=== PATIENT | female | born 1965 | race African-American/Black ===

== ENCOUNTER 2017-10-17 20:49 | Emergency (ER) | payer OTHER ==
[~2017-10-17] VITALS: Ht 157.5 cm; Wt 73.9 kg
[~2017-10-17 20:49] MED LIST: ATIVAN1 MG ORAL; ATORVASTATIN CA10 MG ORAL; AZITHROMYCIN250 MG PO; CIPROFLOXACIN500 M2 ORAL; CYCLOBENZAPRINE10 MG ORAL; DIFLUCAN150 MG PO; IBUPROFEN600 MG ORAL; METROGEL-VAGINA70 G1 VAGIN; NORCO 5-325 TA1 EACH ORAL; OCUFLOX5 ML RIGHT EYE; PHENERGAN/CODE120 ML PO
[2017-10-17 20:55] VITALS: BP 115/69
[2017-10-17] MEDS ORDERED: HYDROCODON-ACE1 EA15 ORAL (21:29)
[2017-10-17] MEDS ORDERED: IBUPROFEN600 MG ORAL (21:29)
--- NOTE | 2017-10-17 21:29 | Emergency Room Report ---
History of Present Illness General Chief Complaint: Lower Back Pain or Injury Source: Patient Present Illness HPI This is a 52-year-old female with a history of herniated disc in the lumbar spine. She was doing well until yesterday when is acting up. Pain to the lower back radiating down her left buttock. Pain is 9/10. Worse with certain motion and certain position. No anesthesia. No incontinence of bowel or urine. Similar symptom to previous. She had MRI done already. Allergies: Coded Allergies: No Known Allergies (Verified , 10/26/16) Patient History Past Medical History: see triage record, old chart reviewed Past Surgical History: none Pertinent Family History: none Social History: Denies: smoking Last Menstrual Period: none Now: No Immunizations: other Reviewed Nursing Documentation: PMH: Agreed, PSxH: Agreed Nursing Documentation-PMH Hx Cardiac Problems: Yes - high cholesterol Hx Asthma: Yes - partial hysterectomy 1989 Hx Diabetes: Yes - "borderline" Review of Systems Eye: Denies: eye pain, blurred vision ENT: Denies: ear pain, nose congestion, throat swelling Respiratory: Denies: cough, shortness of breath Cardiovascular: Denies: chest pain, palpitations Gastrointestinal: Denies: abdominal pain, diarrhea, nausea, vomiting Musculoskeletal: Reports: back pain, Denies: joint pain Skin: Denies: rash Neurological: Denies: headache, numbness Endocrine: Denies: increased thirst, increased urine Hematologic/Lymphatic: Denies: easy bruising All Other Systems: negative except mentioned in HPI Physical Exam Vital Signs Date Time Temp Pulse Resp B/P (MAP) Pulse Ox O2 Delivery O2 Flow Rate FiO2 10/17/17 20:55 97.9 70 18 115/69 98 vitals alexia Sp02 EP Interpretation: reviewed, normal General Appearance: well appearing, no apparent distress, alert Head: normocephalic, atraumatic Eyes: bilateral eye PERRL, bilateral eye EOMI ENT: hearing grossly normal, normal pharynx Neck: full range of motion, supple, no meningismus Respiratory: chest non-tender, lungs clear, normal breath sounds Cardiovascular #1: regular rate, rhythm, no murmur Gastrointestinal: normal bowel sounds, non tender, no mass, no organomegaly, no bruit, non-distended Musculoskeletal: back normal - No deformit lower lumbararea on the left., gait/ station normal, normal range of motion Psychiatric: mood/affect normal Skin: warm/dry Medical Decision Making Diagnostic Impression: Primary Impression: Low back pain Qualified Codes: M54.42 - Lumbago with sciatica, left side ER Course Patient was exacerbation of chronic lower back pain. No red flags indicate cauda equina syndrome, spinal epidural abscess or neoplastic process. We'll discharge home. Last Vital Signs Date Time Temp Pulse Resp B/P (MAP) Pulse Ox O2 Delivery O2 Flow Rate FiO2 10/17/17 20:55 97.9 70 18 115/69 98 Status: improved Disposition: HOME, SELF-CARE Condition: Stable Scripts Ibuprofen* (MOTRIN*) 600 Mg Tablet 600 MG ORAL THREE TIMES A DAY, #30 TAB 0 Refills Prov: ANTONI SANCHEZ M.D. 10/17/17 Hydrocodone/Acetaminophen 5-325* (HYDROCODONE/ACETAMINOPHEN 5-325*) 1 Each Tablet 1 TAB ORAL Q6H Y for For Pain, #30 TAB 0 Refills Prov: ANTONI SANCHEZ M.D. 10/17/17 Patient Instructions: Back Pain, Adult Additional Instructions: Followup with your DrAlisa in 7 days. Return if symptom worsen. ANTONI SANCHEZ M.D. Oct 17, 2017 21:29
[2017-10-17] MEDS ORDERED: HYDROmorphone 1mg/ml Carpuject IM ONE (21:30)
[2017-10-17 21:38] VITALS: BP 115/69
== END 2017-10-17 21:38 | disposition home or self-care (01) ==
LOC: EMR 21:25
DX: M54.42 Lumbago with sciatica, left side (principal); G89.29 Other chronic pain
CPT/HCPCS: 99283; J1170

== ENCOUNTER 2017-11-27 11:28 | Emergency (ER) | payer BC, OTHER ==
[~2017-11-27] VITALS: Ht 154.9 cm; Wt 72.6 kg
[~2017-11-27 11:28] MED LIST changes: +HYDROCODON-ACE1 EA15 ORAL
[2017-11-27 11:32] VITALS: BP 104/62
--- NOTE | 2017-11-27 12:22 | Emergency Room Report ---
History of Present Illness General Chief Complaint: Pain Source: Patient, Medical Record Present Illness HPI 52-year-old female presents ER complaining of left wrist and left ankle pain. Patient reports a shopping cart ran over ankle a "few days ago" and and she jammed her wrist on the cart when this occured. Patient complains of pain with walking; states her ankle "swells up" when she puts weight on it. Patient reports she has been resting and icing the ankle with mild relief of symptoms. 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 Patient denies use of medication for pain. Patient reports history of surgery on left ankle "years ago". Patient denies hitting head, LOC, dizziness, syncope. Patient denies fever, nausea, vomiting, numbness or tingling in extremities. Allergies: Coded Allergies: No Known Allergies (Verified , 10/26/16) Patient History Past Medical History: see triage record Pertinent Family History: none Reviewed Nursing Documentation: PMH: Agreed, PSxH: Agreed Nursing Documentation-PM Past Medical History: No History, Except For Hx Cardiac Problems: Yes - high cholesterol Hx Asthma: Yes - partial hysterectomy 1989 Hx Diabetes: Yes - "borderline" Review of Systems All Other Systems: negative except mentioned in HPI Physical Exam Vital Signs Date Time Temp Pulse Resp B/P (MAP) Pulse Ox O2 Delivery O2 Flow Rate FiO2 11/27/17 11:32 97.3 98 18 104/62 99 Room Air Sp02 EP Interpretation: reviewed, normal General Appearance: no apparent distress, alert, GCS 15, non-toxic Head: normocephalic, atraumatic Eyes: bilateral eye normal inspection, bilateral eye PERRL Neck: full range of motion Respiratory: chest non-tender, lungs clear, normal breath sounds, no respiratory distress, speaking full sentences Cardiovascular #1: regular rate, rhythm, no edema Cardiovascular #2: 2+ radial (R), 2+ radial (L), 2+ dorsalis pedis (R), 2+ dorsalis pedis (L) Musculoskeletal: back normal, digits/nails normal, gait/station normal, normal range of motion - left wrist, non-tender, no calf tenderness, decreased range of motion - left ankle: secondary to pain, other - NVI Neurologic: alert, oriented x3, responsive, sensory intact, abnormal gait - secondary to pain Psychiatric: mood/affect normal Skin: normal color, no rash, warm/dry, well hydrated, other - hyperpigmented scar along lateral aspect of left lower leg extending to ankle Medical Decision Making PA Attestation Dr. Kaur is my supervising Physician whom patient management has been discussed with. Diagnostic Impression: Primary Impression: Left ankle pain Additional Impression: Left wrist pain ER Course Pt. presents to the ED c/o left ankle and wrist pain. Ddx considered but are not limited to fracture, sprain, strain, contusion, cellulitis. Upon physical exam, patients left wrist has full ROM, non TTP, and is NVI intact. X-rays not indicated at this time. Recommend Motrin for pain. Vital signs: are WNL, pt. is afebrile ORDERS: An X-ray of the left ankle was ordered, results show no acute fracture, per discussion with the radiologist. ED INTERVENTIONS: Ibuprofen KELLY Wrap was applied. The affected ankle was checked afterwards by me showing good alignment and support with distal neurovascular functioning intact. Crutches provided DISCHARGE: -Rx provided for Ibuprofen for pain symptoms. At this time pt. is stable for d/c to home. Will provide printed patient care instructions, and any necessary prescriptions. Patient instructed to follow with primary care provider in 3 - 5 days and to request further orthopedic follow-up. Care plan and follow up instructions have been discussed with the patient prior to discharge. Patient instructed on RICE method: rest, ice, compression, elevation. Patient instructed to WBAT. Take medications as directed. Patient questions asked and answered. ER precautions given, patient instructed to return to ER immediately for any new or worsening of symptoms. Other X-Ray Diagnostic Results Other X-Ray Diagnostic Results : # of Views/Limited Vs Complete: 3 View Indication: Pain EP Interpretation: Yes PA Xray: Interpretation reviewed, by supervising MD, and agrees with findings. Interpretation: no dislocation, no soft tissue swelling, no fractures, other - Previous surgical repair of fibula Impression: No acute disease IAN Scribe Text Mejia Preciado PA-C Last Vital Signs Date Time Temp Pulse Resp B/P (MAP) Pulse Ox O2 Delivery O2 Flow Rate FiO2 11/27/17 11:32 97.3 98 18 104/62 99 Room Air Disposition: HOME, SELF-CARE Condition: Stable Scripts Ibuprofen* (MOTRIN*) 600 Mg Tablet 600 MG ORAL Q8H Y for For Pain, #30 TAB 0 Refills Prov: Lionel Preciado 11/27/17 Patient Instructions: Ankle Sprain, [id number] Additional Instructions: Followup with primary care provider in 3 -5 days to discuss further treatment and ortho referral. Recommend RICE method: rest, ice, compression, elevation. Take medications as directed. Patient questions asked and answered. ER precautions given, patient instructed to return to ER immediately for any new or worsening of symptoms. Lionel Preciado Nov 27, 2017 12:22
[2017-11-27] MEDS ORDERED: IBUPROFEN600 MG ORAL (14:10)
--- NOTE | 2017-11-27 14:16 | Diagnostic Imaging Report ---
Indication: Ankle pain Technique: 3 views of the left ankle Comparison: none Findings: Lateral sideplate and screws seen reducing old healed distal fibular fracture. 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 No acute fractures. No dislocations. The joint spaces are preserved. Numerous ossific densities surrounding the ankle joint, most likely represent accessory ossicles but one or more intra-articular loose bodies not completely excludable. There is a small plantar spur Impression: No acute bony trauma Postsurgical changes, as described Degenerative changes, as described
[2017-11-27 15:02] VITALS: BP 110/64
== END 2017-11-27 14:45 | disposition home or self-care (01) ==
LOC: EMR 12:09
DX: M79.672 Pain in left foot (principal); M25.532 Pain in left wrist; J45.909 Unspecified asthma, uncomplicated; Z98.890 Other specified postprocedural states
CPT/HCPCS: 99283

== ENCOUNTER 2018-01-15 01:59 | Emergency (ER) | payer BC ==
[~2018-01-15] VITALS: Ht 154.9 cm; Wt 72.6 kg
[2018-01-15 02:15] VITALS: BP 122/79
--- NOTE | 2018-01-15 02:18 | Emergency Room Report ---
History of Present Illness General Chief Complaint: Female Urogenital Problems Source: Patient Present Illness HPI Is a 52-year-old female with no sign of an past medical history. She presents with chief complaint of dysuria and frequency. Onset for about 2 weeks now. This occurred after she got back from a cruise with a new boyfriend. She finished a course of Macrobid and improved but now came back 2 days later. No nausea no vomiting. No discharge. Does have an older. Denies any other complaint. Allergies: Coded Allergies: No Known Allergies (Verified , 10/26/16) Patient History Past Medical History: see triage record, old chart reviewed Past Surgical History: other Pertinent Family History: none Social History: Denies: smoking Now: No Immunizations: other Reviewed Nursing Documentation: PMH: Agreed, PSxH: Agreed Nursing Documentation-PMH Hx Cardiac Problems: Yes - high cholesterol Hx Asthma: Yes - partial hysterectomy 1989 Hx Diabetes: Yes - "borderline" Review of Systems Eye: Denies: eye pain, blurred vision ENT: Denies: ear pain, nose congestion, throat swelling Respiratory: Denies: cough, shortness of breath Cardiovascular: Denies: chest pain, palpitations Gastrointestinal: Denies: abdominal pain, diarrhea, nausea, vomiting Genitourinary: Reports: dysuria Musculoskeletal: Denies: back pain, joint pain Skin: Denies: rash Neurological: Denies: headache, numbness Endocrine: Denies: increased thirst, increased urine Hematologic/Lymphatic: Denies: easy bruising All Other Systems: negative except mentioned in HPI Physical Exam Vital Signs Date Time Temp Pulse Resp B/P (MAP) Pulse Ox O2 Delivery O2 Flow Rate FiO2 01/15/18 02:02 97.8 86 16 119/79 99 Room Air 97.9 vitals normal Sp02 EP Interpretation: reviewed, normal General Appearance: well appearing, no apparent distress, alert Head: normocephalic, atraumatic Eyes: bilateral eye PERRL, bilateral eye EOMI ENT: hearing grossly normal, normal pharynx Neck: full range of motion, supple, no meningismus Respiratory: chest non-tender, lungs clear, normal breath sounds Cardiovascular #1: regular rate, rhythm, no murmur Gastrointestinal: normal bowel sounds, non tender, no mass, no organomegaly, no bruit, non-distended Genitourinary: other - Pelvic exam done with Milli female nurse, as pipeman. External exam normal. Internal exam showed whitish discharge. No cervical motion tenderness. No adnexal tenderness. Musculoskeletal: back normal, gait/station normal, normal range of motion Psychiatric: mood/affect normal Skin: warm/dry Medical Decision Making Diagnostic Impression: Primary Impression: Vaginitis Qualified Codes: N76.0 - Acute vaginitis ER Course Patient presents with a vaginitis. On exam it looked like bacterial vaginosis. We'll discharge home. Recommend outpatient Pap smear. Patient said she scheduled for one coming up. Last Vital Signs Date Time Temp Pulse Resp B/P (MAP) Pulse Ox O2 Delivery O2 Flow Rate FiO2 01/15/18 02:02 97.8 86 16 119/79 99 Room Air 97.9 Status: unchanged Disposition: HOME, SELF-CARE Condition: Stable Scripts Metronidazole* (FLAGYL*) 500 Mg Tablet 500 MG ORAL BID, #14 TAB Prov: ANTONI SANCHEZ M.D. 01/15/18 Patient Instructions: Vaginitis Additional Instructions: Follow-up with your doctor in 5-7 days. Recommend outpatient Pap smear. Return if symptom worsen. ANTONI SANCHEZ M.D. Jan 15, 2018 02:18
[2018-01-15 02:24] LABS: APPEARANCE,URINE CLEAR; BILIRUBIN, URINE NEGATIVE (NEGATIVE); COLOR,URINE PALE YELLOW; GLUCOSE, URINE (UA) NEGATIVE (NEGATIVE); KETONES,URINE NEGATIVE (NEGATIVE); LEUKOCYTE ESTERASE ,URINE 1+ (NEGATIVE); NITRITE,URINE NEGATIVE (NEGATIVE); PH,URINE 6 (4.5-8.0); PROTEIN,URINE NEGATIVE (NEGATIVE); UROBILINOGEN,URINE NORMAL MG/DL (0.0-1.0)
[2018-01-15] MEDS ORDERED: METRONIDAZOLE500 MG ORAL (02:43)
[2018-01-15 02:51] VITALS: BP 122/79
== END 2018-01-15 02:51 | disposition home or self-care (01) ==
LOC: EMR 02:18
DX: N76.0 Acute vaginitis (principal); E78.00 Pure hypercholesterolemia, unspecified; R73.03 Prediabetes
CPT/HCPCS: 81003; 87210; 99283

== ENCOUNTER 2018-09-11 18:02 | Emergency (ER) | payer BC ==
[~2018-09-11] VITALS: Ht 156.2 cm; Wt 71.7 kg
[~2018-09-11 18:02] MED LIST changes: +METRONIDAZOLE500 MG ORAL
[2018-09-11 18:10] VITALS: BP 121/77
[2018-09-11 18:41] LABS: APPEARANCE,URINE CLEAR; BILIRUBIN, URINE NEGATIVE (NEGATIVE); COLOR,URINE PALE YELLOW; GLUCOSE, URINE (UA) NEGATIVE (NEGATIVE); KETONES,URINE NEGATIVE (NEGATIVE); LEUKOCYTE ESTERASE ,URINE NEGATIVE (NEGATIVE); NITRITE,URINE NEGATIVE (NEGATIVE); PH,URINE 5 (4.5-8.0); PROTEIN,URINE NEGATIVE (NEGATIVE); UROBILINOGEN,URINE NORMAL MG/DL (0.0-1.0)
--- NOTE | 2018-09-11 18:43 | Emergency Room Report ---
History of Present Illness General Chief Complaint: Back Pain-No Injury Source: Patient, Medical Record Present Illness HPI 53-year-old female patient presents ER complaining of pain with urinating for the past few days and bilateral flank pain for the past day. REports flank pain worse on right side compared to left side. Reports burning with urination, frequency, urgency for the past 2 weeks. States that she called her doctor 2 weeks ago and he prescribed her Cipro, states that she completed the course, states the symptoms resolved for 4 days before returning a few days ago. Denies vaginal discharge. Denies hematuria. Denies foul smelling odor. Denies recent injury or trauma. denies bowel or bladder incontinence. Reports takes [place] for pain, last taken 4 hours ago prior to arrival at the ER. Reports pain worse with movement. Denies fever, chest pain, SOB, abdominal pain. Denies radiation of pain symptoms. Allergies: Coded Allergies: No Known Allergies (Verified , 10/26/16) Patient History Past Medical History: see triage record Last Menstrual Period: 1998 Reviewed Nursing Documentation: PMH: Agreed; PSxH: Agreed Nursing Documentation-PMH Past Medical History: No History, Except For Hx Cardiac Problems: Yes - high cholesterol Hx Asthma: Yes - partial hysterectomy 1989 Hx Diabetes: Yes - "borderline" Review of Systems All Other Systems: negative except mentioned in HPI Physical Exam Vital Signs Date Time Temp Pulse Resp B/P (MAP) Pulse Ox O2 Delivery O2 Flow Rate FiO2 09/11/18 18:07 97.5 82 18 121/77 98 Room Air Sp02 EP Interpretation: reviewed, normal General Appearance: well appearing, no apparent distress, alert, GCS 15, non- toxic Head: normocephalic, atraumatic Eyes: bilateral eye normal inspection, bilateral eye PERRL ENT: hearing grossly normal, normal pharynx, no angioedema, normal voice, uvula midline, moist mucus membranes Neck: full range of motion Respiratory: lungs clear, normal breath sounds, no rhonchi, no respiratory distress, no accessory muscle use, no wheezing, speaking full sentences Cardiovascular #1: regular rate, rhythm, no edema Cardiovascular #2: 2+ radial (R), 2+ radial (L) Gastrointestinal: non tender, soft, no mass, non-distended, no guarding, no pulsatile mass, no rebound Genitourinary: CVA tenderness (R) Musculoskeletal: back normal, digits/nails normal, gait/station normal, normal range of motion, non-tender Neurologic: alert, oriented x3, responsive, motor strength/tone normal, SLR negative, sensory intact, cerebellar normal, normal gait, speech normal Psychiatric: mood/affect normal Skin: no rash Lymphatic: no adenopathy Medical Decision Making PA Attestation Dr. Kaur is my supervising Physician whom patient management has been discussed with. Diagnostic Impression: Primary Impression: Dysuria Additional Impressions: Flank pain Hiatal hernia ER Course Pt presents to ED c/o dysuria and bilateral flank pain. DDX considered but are not limited to cystitis, pyelonephritis, STI, vaginitis, , hydronephrosis, sprain, strain, kidney stones, muscle spasm. No abdominal tenderness to palpation, negative electro winning operator, negative Mixon, negative Rovsing, low suspicion for cholecystitis or appendicitis, does not require imaging or labs at this time. VITAL SIGNS are WNL, patient is afebrile. ER COURSE Provided patient with Pyridium, morphine, and zofran. CBC and CMP unremarkable other than elevation in alk phos, no elevation in WBCs or LFTs, BUN and creatinine WNL, Lipase WNL UA results negative, do not indicate UTI, will provide Pyridium at discharge for pain with urination. If concern for STI, followup with STI clinic for testing and treatment. Denies STI concern .f/u with PCP to discuss further treatment and referral. CT abdomen pelvis shows no hydronephrosis or stones, bladder nondistended and unremarkable, no free fluid/air, SPO. Appendix normal, hiatal hernia, gastric band Discuss results with patient. Will provide patient with lidocaine patch and robaxin for possible muscular pain. Advised on rest and ice and heat. Followup with PCP and discuss further treatment and referral as needed. Patient is resting comfortably in bed, nontoxic appearing, in no acute distress. Patient states they feel better and is ready to go home. DISCHARGE -Rx provided for Phenazopyridine for pain. SE may turn urine orange. Rx provided for lidocaine patch Rx provided for robaxin Patient is stable for discharge. Patient resting comfortably, in no acute distress, nontoxic appearing, talking without difficulty. Will provide with patient care instructions and any necessary prescriptions. Patient understands and agrees to treatment plan. Patient encouraged to drink plenty of fluids. Patient to take medication as instructed. Care plan and follow-up instructions provided. Patient questions asked and answered. Reports understanding and agreement to treatment plan. Patient instructed to follow-up with primary care provider in 3 - 5 days. ER precautions given. Patient instructed to return to ER immediately for any new or worsening of symptoms. Including but not limited to fever, abdominal pain , intractable vomiting. - Please note that this Emergency Department Report was dictated using [employer] engine assembler technology software, occasionally this can lead to erroneous entry secondary to interpretation by the dictation equipment. Labs Test 09/11/18 18:18 09/11/18 20:30 Urine Color Pale yellow Urine Appearance Clear Urine pH 5 (4.5-8.0) Urine Specific [place] 1.015 (1.005-1.035) Urine Protein Negative (NEGATIVE) Urine Glucose (UA) Negative (NEGATIVE) Urine Ketones Negative (NEGATIVE) Urine Blood Negative (NEGATIVE) Urine Nitrite Negative (NEGATIVE) Urine Bilirubin Negative (NEGATIVE) Urine Urobilinogen Normal MG/DL (0.0-1.0) Urine Leukocyte Esterase Negative (NEGATIVE) White Blood Count 5.2 K/UL (4.8-10.8) Red Blood Count 4.20 M/UL (4.20-5.40) Hemoglobin 13.6 G/DL (12.0-16.0) Hematocrit 39.0 % (37.0-47.0) Mean Corpuscular Volume 93 FL (80-99) Mean Corpuscular Hemoglobin 32.4 PG (27.0-31.0) Mean Corpuscular Hemoglobin Concent 34.9 G/DL (32.0-36.0) Red Cell Distribution Width 10.4 % (11.6-14.8) Platelet Count 330 K/UL (150-450) Mean Platelet Volume 5.1 FL (6.5-10.1) Neutrophils (%) (Auto) 64.2 % (45.0-75.0) Lymphocytes (%) (Auto) 27.5 % (20.0-45.0) Monocytes (%) (Auto) 3.1 % (1.0-10.0) Eosinophils (%) (Auto) 2.6 % (0.0-3.0) Basophils (%) (Auto) 2.6 % (0.0-2.0) Sodium Level 142 MMOL/L (136-145) Potassium Level 3.6 MMOL/L (3.5-5.1) Chloride Level 104 MMOL/L (98-107) Carbon Dioxide Level 31 MMOL/L (21-32) Anion Gap 7 mmol/L (5-15) Blood Urea Nitrogen 10 mg/dL (7-18) Creatinine 0.8 MG/DL (0.55-1.30) Estimat Glomerular Filtration Rate > 60 mL/min (>60) Glucose Level 88 MG/DL (74-106) Calcium Level 9.6 MG/DL (8.5-10.1) Total Bilirubin 0.3 MG/DL (0.2-1.0) Aspartate Amino Transf (AST/SGOT) 28 U/L (15-37) Alanine Aminotransferase (ALT/SGPT) 69 U/L (12-78) Alkaline Phosphatase 136 U/L (46-116) Total Protein 8.2 G/DL (6.4-8.2) Albumin 3.7 G/DL (3.4-5.0) Globulin 4.5 g/dL Albumin/Globulin Ratio 0.8 (1.0-2.7) Lipase 88 U/L (73-393) CT/MRI/US Diagnostic Results CT/MRI/US Diagnostic Results : Imaging Test Ordered: CT abdomen and pelvis Impression no hydronephrosis or stones, bladder nondistended and unremarkable, no free fluid/air, SPO. Appendix normal, hiatal hernia, gastric band Last Vital Signs Date Time Temp Pulse Resp B/P (MAP) Pulse Ox O2 Delivery O2 Flow Rate FiO2 09/11/18 18:07 97.5 82 18 121/77 98 Room Air Status: improved Disposition: HOME, SELF-CARE Condition: Stable Scripts Phenazopyridine Hcl* (PYRIDIUM*) 100 Mg Tablet 100 MG ORAL THREE TIMES A DAY, #15 TAB Prov: Lionel Preciado.AAlisa 09/11/18 Methocarbamol* (ROBAXIN*) 500 Mg Tablet 500 MG PO TID, #21 TAB 0 Refills Prov: Lionel Preciado.Clemencia 09/11/18 Lidocaine (Lidocaine) 1 Each Adh..patch 5 % TP DAILY for 7 Days, #7 PATCH Prov: Lionel Preciado.Clemencia 09/11/18 Patient Instructions: Dysuria, Flank Pain, [id number], Back Pain, Adult Additional Instructions: Followup with primary care provider and followup with and./or OBGYN. Drink plenty of fluids. Take medications as directed. Pyridium has SE of turning urine orange. Advised on rest, ice, and heat for back pain symptoms. Muscle relaxant may cause drowsiness, do not take prior to drinking, driving, operating heavy machinery. Discuss referral to ortho, pain management, physical therapy. Discuss need for MRI imaging. Patient questions asked and answered. ER precautions given, patient instructed to return to ER immediately for any new or worsening of symptoms. Lionel Preciado Sep 11, 2018 18:43
[2018-09-11] MEDS ORDERED: Phenazopyridine 200mg tab ORAL ONE (18:45)
[2018-09-11] MEDS ORDERED: Morphine Sulfate 2mg/ml Inj IVP ONE (19:15)
[2018-09-11] MEDS ORDERED: Isovue-300 100ml vial INJ PRN (19:15)
[2018-09-11 20:51] LABS: ANION GAP 7 mmol/L (5-15); BLOOD UREA NITROGEN 10 mg/dL (7-18); CARBON DIOXIDE 31 MMOL/L (21-32); CHLORIDE 104 MMOL/L (98-107); CREATININE 0.8 MG/DL (0.55-1.30); POTASSIUM 3.6 MMOL/L (3.5-5.1); SODIUM 142 MMOL/L (136-145)
[2018-09-11 20:52] LABS: CALCIUM 9.6 MG/DL (8.5-10.1)
[2018-09-11 20:54] LABS: BASOPHILS % (AUTO) 2.6 % (0.0-2.0); EOSINOPHILS % (AUTO) 2.6 % (0.0-3.0); HEMOGLOBIN 13.6 G/DL (12.0-16.0); LYMPHOCYTES % (AUTO) 27.5 % (20.0-45.0); MEAN CORPUSCULAR VOLUME 93 FL (80-99); MONOCYTES % (AUTO) 3.1 % (1.0-10.0); NEUTROPHILS % (AUTO) 64.2 % (45.0-75.0); PLATELET COUNT 330 K/UL (150-450); RED CELL DISTRIBUTION WIDTH 10.4 % (11.6-14.8); WHITE BLOOD COUNT 5.2 K/UL (4.8-10.8)
[2018-09-11 20:56] LABS: ALANINE AMINOTRANSFERASE 69 U/L (12-78); ALBUMIN 3.7 G/DL (3.4-5.0); ALBUMIN/GLOBULIN RATIO 0.8 (1.0-2.7); ALKALINE PHOSPHATASE 136 U/L (46-116); ASPARTATE AMINO TRANSFERASE 28 U/L (15-37); BILIRUBIN,TOTAL 0.3 MG/DL (0.2-1.0)
[2018-09-11] MEDS ORDERED: PHENAZOPYRIDIN100 MG ORAL (21:19)
[2018-09-11] MEDS ORDERED: ROBAXIN500 MG PO (21:19)
[2018-09-11] MEDS ORDERED: LIDOCAINE700 M1 TP (21:19)
[2018-09-11 21:27] VITALS: BP 121/77
--- NOTE | 2018-09-12 10:29 | Diagnostic Imaging Report ---
Indication: Abdominal pain Technique: Spiral acquisitions obtained through the abdomen and pelvis. No oral contrast utilized, per emergency room physician request No IV contrast utilized, preserved physician request.. Multiplanar reconstructions were generated. Total dose length product 794 mGycm. CTDIvol(s) 16 mGy. Dose reduction achieved using automated exposure control Comparison: None Findings: There is a lap band in place, position of which appears to be satisfactory. The appendix is normal. No evidence of diverticulosis or diverticulitis. No small bowel distention. No free or loculated intraperitoneal gas or fluid is evident. The distal esophagus is unremarkable. Lack of IV contrast limits assessment of solid organs. Liver, gallbladder, bile ducts, pancreas, spleen, adrenals, kidneys are all unremarkable. No renal or ureteral calculi, hydronephrosis, or hydroureter. The bladder is unremarkable. The uterus is not visualized, presumed surgically absent. No pelvic mass or adenopathy. There is evidence of a or hysterectomy scar. The included lung bases demonstrate linear atelectasis and/or scarring. The bones demonstrate degenerative spondylosis changes. Impression: No acute abnormality Lab band in place, position satisfactory Evidence of prior hysterectomy This agrees with the preliminary interpretation provided overnight by Dr. Pastor The CT scanner at [facility] is accredited by the [employer] and the scans are performed using protocols designed to limit radiation exposure to as low as reasonably achievable to attain images of sufficient resolution adequate for diagnostic evaluation.
== END 2018-09-11 21:27 | disposition home or self-care (01) ==
LOC: EMR 19:07
DX: R30.0 Dysuria (principal); R10.9 Unspecified abdominal pain; K44.9 Diaphragmatic hernia without obstruction or gangrene; E11.9 Type 2 diabetes mellitus without complications; J45.909 Unspecified asthma, uncomplicated; Z90.710 Acquired absence of both cervix and uterus
CPT/HCPCS: 36415; 74176; 80053; 81003; 83690; 85025; 96361; 96374; 96375; 99284; J2270; J2405